=== PATIENT | female | born 1995 | race Caucasian/White ===

== ENCOUNTER 2019-10-09 14:30 | Inpatient (IN) ==
[2019-10-09 15:37] LABS: Basophils % 0.4 %; Eosinophils # 0.6 K/mcL (0.0-0.6); Eosinophils % 5.5 %; Hematocrit 43.8 % (35.3-44.9); Hemoglobin 14.8 g/dL (11.5-15.4); Immature Granulocytes % 0.2 % (0-4); Lymphocytes # 2.7 K/mcL (0.6-4.6); Lymphocytes % 27.4 %; Mean Corpuscular HGB Conc 33.8 g/dL (31.6-35.5); Mean Corpuscular Volume 94.8 fL (83.0-100.0); Mean Platelet Volume 9.9 fL (9.4-12.4); Monocytes # 0.7 K/mcL (0.0-1.3); Monocytes % 7.2 %; Neutrophils # 5.9 K/mcL (1.6-8.9); Platelet Count 248 K/mcL (140-400); Red Blood Count 4.62 M/mcL (3.82-4.97); Red Cell Distribution Width 12.6 % (11.5-14.5); Segmented Neutrophils % 59.3 %
[2019-10-09 15:53] LABS: Acetaminophen < 10 mcg/mL (10-20); BUN/Creatinine Ratio 17 (6-26); Blood Urea Nitrogen 14 mg/dL (6-20); Calcium 8.9 mg/dL (8.6-10.3); Carbon Dioxide 24 mEq/L (23-29); Chloride 108 mEq/L (98-107); Ethanol < 10 mg/dL (Less than 10); Glucose 93 mg/dL (70-105); Osmolality,Calculated 288 (280-300); Potassium 3.7 mEq/L (3.5-5.1); Salicylate < 2.5 mg/dL (15.0-30.0); Sodium 139 mEq/L (136-145); eGFR For African Americans > 60 (> 60); eGFR For Non-African Americans > 60 (> 60)
[2019-10-09 16:09] LABS: Amphetamine Screen,Urine Negative ng/mL (Cutoff=1000); Barbiturate Screen,Urine Negative ng/mL (Cutoff=200); Benzodiazepines Screen,Urine Negative ng/mL (Cutoff=200); Cannabinoid Screen,Urine Negative ng/mL (Cutoff = 50); Cocaine Screen,Urine Negative ng/mL (Cutoff= 300); Opiate Screen,Urine Negative ng/mL (Cutoff=300); Phencyclidine Screen,Urine Negative ng/mL (Cutoff=25)
[2019-10-09 16:39] LABS: Bacteria,Urine None Seen per hpf (None-Few); Bilirubin,Urine Negative (Negative); Blood,Urine Negative (Negative); Clarity,Urine Cloudy (Clear); Color,Urine Yellow (Yellow); Glucose,Urine (UA) Normal (Normal); Hyaline Casts,Urine None Seen per lpf (None-Few); Ketones,Urine Negative (Negative); Leukocyte Esterase,Urine Negative (Negative); Nitrite,Urine Negative (Negative); PH,Urine 7.5 pH Units (5.0-8.0); Protein,Urine 30 mg/dL (Neg-Trace); RBC,Urine 0-3 per hpf (0-3); Specific Gravity,Urine > 1.030 (1.010-1.025); Squamous Epithelial Cell,Urine Many per lpf (None-Few); Urobilinogen,Urine Normal (Normal); WBC,Urine 0-3 per hpf (0-3)
[2019-10-09] MEDS ORDERED: MOM Conc 10 ML UD.LIQ PO PRN (17:46)
[2019-10-09] MEDS ORDERED: Haloperidol Lactate 5 MG/ML VIAL IM PRN (17:46)
[2019-10-09] MEDS ORDERED: *HR* LORazepam 2 MG/ML VIAL IM PRN (17:46)
[2019-10-09] MEDS ORDERED: traZODone 50 MG TABLET PO PRN (17:46)
[2019-10-09] MEDS ORDERED: *HR* LORazepam 1 MG TABLET PO PRN (17:46)
[2019-10-09] MEDS ORDERED: hydrOXYzine pamoate 25 MG CAPSULE PO PRN (17:46)
[2019-10-09] MEDS ORDERED: Mag Hydrox/Al Hydrox/Simeth 30 ML UDC PO PRN (17:46)
[2019-10-09] MEDS ORDERED: haloperidoL 5 MG TABLET PO PRN (17:46)
[2019-10-09] MEDS ORDERED: Ibuprofen 400 MG TABLET PO PRN (17:46)
[2019-10-09] MEDS: Nicotine 14 MG PATCH.TD24 TD SCH (20:48)
[2019-10-10] MEDS: Nicotine 14 MG PATCH.TD24 TD SCH (08:27)
[2019-10-10] MEDS: Folic Acid 1 MG TABLET PO SCH (13:19)
[2019-10-10] MEDS ORDERED: traZODone 50 MG TABLET PO SCH (21:00)
[2019-10-11] MEDS: Nicotine 14 MG PATCH.TD24 TD SCH (08:46)
[2019-10-11] MEDS: Folic Acid 1 MG TABLET PO SCH (08:46)
[2019-10-11 09:07] VITALS: BP 124/83
== END 2019-10-11 09:50 | disposition home or self-care (01) ==
LOC: EMEROOARM 14:30 → 1ANU 17:44
PROVIDERS: ADMIT Psychiatry & Neurology Psychiatry; ATTEND Psychiatry & Neurology Psychiatry

== ENCOUNTER 2021-06-26 13:07 | Observation (INO) ==
[2021-06-26] MEDS ORDERED: 0.9 % Sodium Chloride 500 ML IVC ONE (13:39)
[2021-06-26] MEDS ORDERED: Aspirin 81 MG TAB.CHEW PO ONE (13:39)
[2021-06-26 15:24] LABS: Bilirubin,Urine Negative (Negative); Blood,Urine Trace (Negative); Clarity,Urine Ex.Turbid (Clear); Color,Urine Orange (Yellow); Glucose,Urine (UA) Normal (Normal); Ketones,Urine Trace mg/dL (Negative); Leukocyte Esterase,Urine Negative (Negative); Nitrite,Urine Negative (Negative); Protein,Urine 50 mg/dL (Neg-Trace); Specific Gravity,Urine > 1.030 (1.010-1.025); Urobilinogen,Urine Normal (Normal)
[2021-06-26 15:26] LABS: Amorphous Sediment,Urine Many per hpf (None-Few)
[2021-06-26 15:26] LABS: Basophils # 0.1 K/mcL (0.0-0.2); Basophils % 0.3 %; Eosinophils # 0.5 K/mcL (0.0-0.6); Eosinophils % 3.4 %; Hematocrit 46.3 % (35.3-44.9); Hemoglobin 15.3 g/dL (11.5-15.4); Immature Granulocytes % 0.5 % (0-4); Lymphocytes # 3.6 K/mcL (0.6-4.6); Lymphocytes % 24.5 %; Mean Corpuscular Hemoglobin 31.5 pg (28.0-33.3); Mean Corpuscular Volume 95.3 fL (83.0-100.0); Mean Platelet Volume 10.7 fL (9.4-12.4); Monocytes % 6.9 %; Neutrophils # 9.5 K/mcL (1.6-8.9); Platelet Count 228 K/mcL (140-400); Red Blood Count 4.86 M/mcL (3.82-4.97); Red Cell Distribution Width 12.8 % (11.5-14.5); Segmented Neutrophils % 64.4 %; White Blood Count 14.7 K/mcL (4.3-11.1)
[2021-06-26 15:27] LABS: Bacteria,Urine Moderate per hpf (None-Few); Squamous Epithelial Cell,Urine Few per hpf (None-Few); WBC,Urine 0-3 per hpf (0-3)
[2021-06-26 15:28] LABS: Mucus,Urine Few per lpf (None-Few)
[2021-06-26 15:54] LABS: Alanine Aminotransferase 318 Units/L (7-52); Albumin/Globulin Ratio 1.2 (1.1-2.2); Alkaline Phosphatase 88 Units/L (34-104); Aspartate Amino Transferase 106 Units/L (13-39); BUN/Creatinine Ratio 12 (6-26); Bilirubin,Direct 0.2 mg/dL (0.0-0.2); Bilirubin,Indirect 0.5 mg/dL (0.0-1.0); Bilirubin,Total 0.7 mg/dL (0.3-1.0); Blood Urea Nitrogen 10 mg/dL (6-20); Calcium 8.7 mg/dL (8.6-10.3); Carbon Dioxide 25 mEq/L (23-29); Chloride 105 mEq/L (98-107); Creatine Kinase 187 Units/L (30-223); Globulin 3.3 g/dL (2.4-3.5); Glucose 86 mg/dL (70-105); Lipase 19 Units/L (11-82); Osmolality,Calculated 282 (280-300); Potassium 3.6 mEq/L (3.5-5.1); Sodium 137 mEq/L (136-145); Total Protein 7.3 g/dL (6.4-8.9); Troponin I 0.04 ng/mL (< 0.04); eGFR For African Americans > 60 (> 60); eGFR For Non-African Americans > 60 (> 60)
[2021-06-26 17:10] LABS: Influenza A PCR Negative (Negative); Influenza B PCR Negative (Negative); Resp. Syncytial Virus PCR Negative (Negative)
[2021-06-26 17:11] LABS: SARS-CoV-2 by PCR (In House) Negative (Negative)
[2021-06-26] MEDS ORDERED: cefTRIAXone 1,000 MG in 0.9 % Sodium Chloride Mini Bag 100 ML IVPB ONE (17:24)
[2021-06-26] MEDS ORDERED: Naloxone 0.4 MG/ML INJ IVP PRN (17:53)
[2021-06-26] MEDS ORDERED: Ondansetron 4 MG/2 ML VIAL IVP PRN (17:53)
[2021-06-26] MEDS ORDERED: Perflutren Lipid Microsphere 1.3 ML in 0.9 % Sodium Chloride 8.7 ML IVP PRN (17:55)
[2021-06-26] MEDS ORDERED: traZODone 50 MG TABLET PO PRN (17:57)
[2021-06-26] MEDS: 0.9 % Sodium Chloride 1,000 ML IVC SCH (19:50)
[2021-06-26] MEDS ORDERED: Nicotine 2 MG GUM BC PRN (20:00)
[2021-06-26] MEDS ORDERED: traZODone 50 MG TABLET PO SCH (21:00)
[2021-06-27 01:30] LABS: Basophils % 0.3 %; Eosinophils # 0.6 K/mcL (0.0-0.6); Eosinophils % 3.9 %; Hematocrit 44.3 % (35.3-44.9); Hemoglobin 14.8 g/dL (11.5-15.4); Immature Granulocytes % 0.5 % (0-4); Lymphocytes # 4.4 K/mcL (0.6-4.6); Lymphocytes % 30.3 %; Mean Corpuscular HGB Conc 33.4 g/dL (31.6-35.5); Mean Corpuscular Volume 95.7 fL (83.0-100.0); Mean Platelet Volume 11.2 fL (9.4-12.4); Monocytes # 1.2 K/mcL (0.0-1.3); Monocytes % 8.5 %; Platelet Count 239 K/mcL (140-400); Red Blood Count 4.63 M/mcL (3.82-4.97); Red Cell Distribution Width 13.1 % (11.5-14.5); Segmented Neutrophils % 56.5 %; White Blood Count 14.4 K/mcL (4.3-11.1)
[2021-06-27 01:39] LABS: Neutrophils # 8.1 K/mcL (1.6-8.9)
[2021-06-27 01:51] LABS: BUN/Creatinine Ratio 14 (6-26); Blood Urea Nitrogen 12 mg/dL (6-20); Calcium 8.5 mg/dL (8.6-10.3); Carbon Dioxide 23 mEq/L (23-29); Chloride 110 mEq/L (98-107); Glucose 85 mg/dL (70-105); Magnesium 1.9 mg/dL (1.6-2.6); Osmolality,Calculated 287 (280-300); Phosphorous 3.4 mg/dL (2.7-4.5); Potassium 3.6 mEq/L (3.5-5.1); Sodium 139 mEq/L (136-145); eGFR For African Americans > 60 (> 60); eGFR For Non-African Americans > 60 (> 60)
[2021-06-27 01:52] LABS: Platelet Estimate Normal (Normal)
[2021-06-27] MEDS: 0.9 % Sodium Chloride 1,000 ML IVC SCH (06:22)
[2021-06-27] MEDS ORDERED: Nicotine 21 MG PATCH.TD24 TD SCH (09:00)
[2021-06-27] MEDS ORDERED: Aspirin 81 MG TAB.CHEW PO SCH (09:00)
[2021-06-27] MEDS ORDERED: cefTRIAXone 1,000 MG in Water for inj. (sterile) 10 ML IVP SCH (09:00)
[2021-06-27] MEDS ORDERED: ATOMOXETINE HCL 18 MG PO SCH (09:00)
[2021-06-27 11:29] VITALS: BP 142/74; PULSE 65; TEMP 97.8; O2SAT 96
[2021-06-27] MEDS ORDERED: Nicotine 21 MG PATCH.TD24 TD ONE (12:00)
== END 2021-06-27 17:25 | disposition home or self-care (01) ==
LOC: EMEROOARM 13:07 → 3BNU 13:07 → SUATTDRO 18:05 → 3BNU 18:38
PROVIDERS: ADMIT Internal Medicine; ATTEND Internal Medicine